=== PATIENT | female | born 1935 | race Caucasian/White ===

== ENCOUNTER 2023-03-14 17:10 | Observation (INO) | payer MEDICARE, OTHER ==
--- NOTE | 2023-03-14 17:58 | ED ---
General Adult HPI - General Chief complaint: Skin/Abscess/Foreign Body Stated complaint: right leg infection Time Seen by Provider: 03/14/23 17:26 Source: patient Mode of arrival: ambulatory Limitations: physical limitation - History of Present Illness Initial comments: 7-year-old female past medical history significant for recurrent cellulitis presents to the ED with a chief complaint of cellulitis. Patient states over the past week has developed redness, warmth, pain, and weeping of her right lower extremity. Notes multiple episodes of cellulitis of the right lower extremity in the past. At this time denies fever. No other complaints. - Related Data Allergies Allergy/AdvReac Type Severity Reaction Status Date / Time Sulfa (Sulfonamide Allergy Rash/Hives Verified 03/14/23 17:22 Antibiotics) Review of Systems ROS Statement: Those systems with pertinent positive or pertinent negative responses have been documented in the HPI. ROS Other: All systems not noted in ROS Statement are negative. Past Medical History Past Medical History: Hyperlipidemia, Hypertension History of Any Multi-Drug Resistant Organisms: None Reported Past Surgical History: Appendectomy, Tubal Ligation Past Psychological History: No Psychological Hx Reported Smoking Status: Never smoker Past Alcohol Use History: None Reported Past Drug Use History: None Reported General Exam Limitations: physical limitation General appearance: alert, in no apparent distress Neck exam: Present: normal inspection Respiratory exam: Present: normal lung sounds bilaterally, respiratory distress Cardiovascular Exam: Present: regular rate, normal rhythm GI/Abdominal exam: Present: soft Extremities exam: Present: other (Redness warmth swelling, erythema and tenderness to palpation over the right anterior lower leg with 1+ pitting edema.) Neurological exam: Present: alert, oriented X3 Psychiatric exam: Present: normal affect, normal mood Skin exam: Present: warm, dry Course Vital Signs 03/14/23 17:17 Temperature 98.9 F Pulse Rate 68 Respiratory 18 Rate Blood Pressure 131/69 O2 Sat by Pulse 98 Oximetry Medical Decision Making - Medical Decision Making Was pt. sent in by a medical professional or institution ([facility], [employer], urgent care, hospital, or fci...) When possible be specific @ -No Did you speak to anyone other than the patient for history (EMS, parent, family, police, friend...)? What history was obtained from this source @ -No Did you review nursing and triage notes (agree or disagree)? Why? @ -I reviewed and agree with nursing and triage notes Were old charts reviewed (outside hosp., previous admission, EMS record, old EKG, old radiological studies, urgent care reports/EKG's, fci records)? Report findings @ -None Differential Diagnosis (chest pain, altered mental status, abdominal pain women, abdominal pain men, vaginal bleeding, weakness, fever, dyspnea, syncope, headache, dizziness, GI bleed, back pain, seizure, CVA, palpatations, mental health, musculoskeletal)? @ -Differential Musculoskeletal Muscular strain, contusion, ligament sprain, fracture, arthritis, septic arthritis, bursitis, cellulitis, muscle spasm, nerve compression, DVT, arterial occlusion, herpes zoster, electrolyte abnormality, tumor.... This is not meant to be in all inclusive list EKG interpreted by me (3pts min.). @ -None X-rays interpreted by me (1pt min.). @ -X-ray interpreted by me showed no evidence of osteomyelitis or free air. CT interpreted by me (1pt min.). @ -None done U/S interpreted by me (1pt. min.). @ -None done What testing was considered but not performed or refused? (CT, X-rays, U/S, labs)? Why? @ -None What meds were considered but not given or refused? Why? @ -None Did you discuss the management of the patient with other professionals (professionals i.e. , PA, REALTIME CAPTIONER, lab, RT, psych nurse, dialysis social worker, binding cutter synthetic cloth, teacher, risk control officer, catalytic case operator)? Give summary @ -No Was smoking cessation discussed for >3mins.? @ -No Was critical care preformed (if so, how long)? @ -No Were there social determinants of health that impacted care today? How? (Homelessness, low income, unemployed, alcoholism, drug addiction, transportation, low edu. Level, literacy, decrease access to med. care, nursing home, rehab)? @ -No Was there de-escalation of care discussed even if they declined (Discuss DNR or withdrawal of care, Hospice)? DNR status @ -No What co-morbidities impacted this encounter? (DM, HTN, Smoking, COPD, CAD, Canc er, CVA, ARF, Chemo, Hep., AIDS, mental health diagnosis, sleep apnea, morbid obesity)? @ -Hypertension, hyperlipidemia. Was patient admitted / discharged? Hospital course, mention meds given and route, prescriptions, significant lab abnormalities, going to OR and other pertinent info. @ -Admission. Imaging shows no evidence of osteomyelitis or necrotizing fasciitis. Vital signs stable, afebrile. CBC does not show an elevated white count. Patient will be admitted due to history of recurrent failures of outpatient treatment despite multiple and long courses of antibiotics. Patient will be admitted to observation started on IV antibiotics with consult to Dr. Kim. Discussed findingd with patient who is in agreement. Undiagnosed new problem with uncertain prognosis? @ -No Drug Therapy requiring intensive monitoring for toxicity (Heparin, Nitro, Insulin, Cardizem)? @ -No Were any procedures done? @ -No Diagnosis/symptom? @ -Cellulitis Acute, or Chronic, or Acute on Chronic? @ -Acute Uncomplicated (without systemic symptoms) or Complicated (systemic symptoms)? @ -Uncomplicated Side effects of treatment? @ -No Exacerbation, Progression, or Severe Exacerbation? @ -No Poses a threat to life or bodily function? How? (Chest pain, USA, VT, pneumonia, PE, COPD, DKA, ARF, appy, cholecystitis, CVA, Diverticulitis, Homicidal, Suicidal, threat to staff... and all critical care pts) @ -No - Lab Data Result diagrams: 03/14/23 17:58 03/14/23 17:58 Lab Results 03/14/23 03/14/23 Range/Units 17:58 17:58 WBC 9.0 (3.8-10.6) k/uL RBC 4.18 (3.80-5.40) m/uL Hgb 12.2 (11.4-16.0) gm/dL Hct 37.1 (34.0-46.0) % MCV 88.7 (80.0-100.0) fL MCH 29.3 (25.0-35.0) pg MCHC 33.0 (31.0-37.0) g/dL RDW 14.5 (11.5-15.5) % Plt Count 305 (150-450) k/uL MPV 8.4 Neutrophils % 57 % Lymphocytes % 24 % Monocytes % 9 % Eosinophils % 8 % Basophils % 1 % Neutrophils # 5.1 (1.3-7.7) k/uL Lymphocytes # 2.2 (1.0-4.8) k/uL Monocytes # 0.8 (0-1.0) k/uL Eosinophils # 0.7 (0-0.7) k/uL Basophils # 0.1 (0-0.2) k/uL Sodium 133 L (137-145) mmol/L Potassium 4.3 (3.5-5.1) mmol/L Chloride 101 (98-107) mmol/L Carbon Dioxide 22 (22-30) mmol/L Anion Gap 10 mmol/L BUN 21 H (7-17) mg/dL Creatinine 0.56 (0.52-1.04) mg/dL Est GFR (CKD-EPI)AfAm >90 (>60 ml/min/1.73 sqM) Est GFR (CKD-EPI)NonAf 83 (>60 ml/min/1.73 sqM) Glucose 96 (74-99) mg/dL Calcium 9.0 (8.4-10.2) mg/dL Total Bilirubin 0.5 (0.2-1.3) mg/dL AST 25 (14-36) U/L ALT 13 (4-34) U/L Alkaline Phosphatase 87 (38-126) U/L Total Protein 6.7 (6.3-8.2) g/dL Albumin 3.5 (3.5-5.0) g/dL Disposition Clinical Impression: Cellulitis Disposition: ADMITTED IP TO THIS HOSP Condition: Good Referrals: Michel Galvan MD [Primary Care Provider] - 1-2 days Time of Disposition: 18:38
[2023-03-14 18:06] LABS: Basophils % (A) 1 %; Eosinophils % (A) 8 %; HCT 37.1 % (34.0-46.0); HGB 12.2 gm/dL (11.4-16.0); Lymphocytes % (A) 24 %; MCH 29.3 pg (25.0-35.0); MCV 88.7 fL (80.0-100.0); Mean Platelet Volume 8.4; Monocytes % (A) 9 %; Neutrophils # (A) 5.1 k/uL (1.3-7.7); Neutrophils % (A) 57 %; Platelet Count 305 k/uL (150-450); RBC 4.18 m/uL (3.80-5.40); RDW 14.5 % (11.5-15.5)
[2023-03-14 18:07] LABS: Basophils # (A) 0.1 k/uL (0-0.2); Eosinophils # (A) 0.7 k/uL (0-0.7); Lymphocytes # (A) 2.2 k/uL (1.0-4.8); Monocytes # (A) 0.8 k/uL (0-1.0)
[2023-03-14 18:18] LABS: ALT 13 U/L (4-34); AST 25 U/L (14-36); African American GFR (CKD) >90 (>60 ml/min/1.73 sqM); Albumin 3.5 g/dL (3.5-5.0); Alkaline Phosphatase 87 U/L (38-126); Anion Gap 10 mmol/L; Blood Urea Nitrogen 21 mg/dL (7-17); Carbon Dioxide 22 mmol/L (22-30); Chloride 101 mmol/L (98-107); Glucose 96 mg/dL (74-99); Non-African American GFR(CKD) 83 (>60 ml/min/1.73 sqM); Potassium 4.3 mmol/L (3.5-5.1); Sodium 133 mmol/L (137-145); Total Bilirubin 0.5 mg/dL (0.2-1.3); Total Protein 6.7 g/dL (6.3-8.2)
[2023-03-14] MEDS ORDERED: VANCOMYCIN IV PER PHARMACY 1 EACH MISC MISCELLANE PRN (18:34)
[2023-03-14] MEDS ORDERED: SODIUM CHLORIDE 0.9% 1,000 ML IV STA (18:34)
[2023-03-14] MEDS ORDERED: KETOROLAC 15 MG/ML 1 ML VIAL IVP PRN (18:38)
[2023-03-14] MEDS ORDERED: ONDANSETRON 4 MG/2 ML VIAL IVP PRN (18:38)
[2023-03-14] MEDS ORDERED: ACETAMINOPHEN TAB 325 MG TAB PO PRN (18:38)
[2023-03-14] MEDS ORDERED: NALOXONE 0.4 MG/ML 1 ML VIAL IV PRN (18:38)
[2023-03-14] MEDS ORDERED: HYDROmorphone 0.5 MG/0.5 ML SYRINGE IVP PRN (18:38)
--- NOTE | 2023-03-14 18:49 | XR ---
EXAMINATION TYPE: XR tibia fibula RT DATE OF EXAM: 03/14/2023 6:14 PM INDICATION: Patient age:Female; 87 years old; Reason for study: r/o osteo; COMPARISON: None TECHNIQUE: The right tibia/fibula was examined in AP and lateral projections. FINDINGS: Soft tissue swelling throughout the leg no evidence for osseous erosion. No evidence for fr acture. Mild degeneration changes of the knee. IMPRESSION: No evidence for osteomyelitis. Soft tissue swelling correlate for systemic and/or infectious etiologies.
[2023-03-14] MEDS ORDERED: VANCOMYCIN 1,250 MG in SODIUM CHLORIDE 0.9% 250 ML IVPB ONE (19:00)
[2023-03-14] MEDS: SODIUM CHLORIDE TAB 1 GM TAB PO SCH (23:07)
[2023-03-14] MEDS: ATORVASTATIN 20 MG TAB PO SCH (23:07)
[2023-03-14] MEDS: TIMOLOL 0.5% OPHTH DROPS 5 ML BTL BOTH EYES SCH (23:07)
[2023-03-15 06:37] LABS: African American GFR (CKD) >90 (>60 ml/min/1.73 sqM); Anion Gap 7 mmol/L; Blood Urea Nitrogen 14 mg/dL (7-17); Calcium 8.5 mg/dL (8.4-10.2); Carbon Dioxide 24 mmol/L (22-30); Chloride 102 mmol/L (98-107); Glucose 98 mg/dL (74-99); Non-African American GFR(CKD) 87 (>60 ml/min/1.73 sqM); Potassium 3.9 mmol/L (3.5-5.1); Sodium 133 mmol/L (137-145)
[2023-03-15] MEDS: SODIUM CHLORIDE TAB 1 GM TAB PO SCH ×2 (08:38→20:27)
[2023-03-15] MEDS: TIMOLOL 0.5% OPHTH DROPS 5 ML BTL BOTH EYES SCH ×2 (08:38→20:25)
[2023-03-15] MEDS: METOPROLOL SUCCINATE (ER) 50 MG TAB.ER.24H PO SCH (10:39)
[2023-03-15] MEDS: LORATADINE 10 MG TAB PO SCH (10:39)
[2023-03-15] MEDS: amLODIPine 10 MG TAB PO SCH (10:39)
--- NOTE | 2023-03-15 11:40 | US ---
EXAMINATION TYPE: US venous doppler duplex LE RT DATE OF EXAM: 03/15/2023 11:20 AM COMPARISON: NONE CLINICAL INDICATION: Female, 87 years old with history of Right lower extremity swelling; Cellulitis right lower leg SIDE PERFORMED: right TECHNIQUE: The lower extremity deep venous system is examined utilizing real time linear array sonog wilmer with graded compression, doppler sonography and color-flow sonography. VESSELS IMAGED: Common Femoral Vein Deep Femoral Vein Greater Saphenous Vein * Femoral Vein Popliteal Vein Small Saphenous Vein * Proximal Calf Veins (* superficial vessels) Right Leg: No evidence of DVT IMPRESSION: Grayscale, color doppler, spectral doppler imaging performed of the deep veins of the lo wer extremities. There is normal flow, compressibility, vascular waveforms.
[2023-03-15] MEDS: NYSTATIN 100,000UNIT/GM CREAM 30 GM TUBE TOPICAL SCH ×2 (11:51→20:26)
[2023-03-15] MEDS: VANCOMYCIN 1,250 MG in SODIUM CHLORIDE 0.9% 250 ML IVPB SCH (11:51)
[2023-03-15] MEDS: TRIAMCINOLONE 0.1% CREAM 80 GM TUBE TOPICAL SCH ×2 (11:51→20:26)
--- NOTE | 2023-03-15 13:06 | P.HPIM ---
History of Present Illness H&P Date: 03/15/23 History of present illness; patient is a 87-year-old lady with past medical hist ory significant for hypertension, hyperlipidemia and the ER because of redness and swelling of the right lower extremity. Patient has been having episodes of recurrent cellulitis in the past. Patient stated that the redness of the right lower extremity cellulitis started 2 days back. Patient was noticing increasing pain and redness, patient was cleaning of lethargy and weakness. There was no c omplaint of fever or chills. Denies any complaint of any recent trauma to her right lower extremity. Denies any recent falls. Denies any lightheadedness or dizziness. Denies any chest pain or shortness of breath. Because of his right lower extremity swelling, patient came to the ER Initial lab work done in the ER showed WBC 19, hemoglobin 12.2, platelet count 305, sodium 1:30, potassium 4.3, BUN 21, creatinine 0.5 Patient was admitted to medicine service REVIEW OF SYSTEMS: CONSTITUTIONAL:As mentioned above HEENT: No recent visual problems or hearing problems. Denied any sore throat. CARDIOVASCULAR: No chest pain, orthopnea, PND, no palpitations, no syncope. PULMONARY: No shortness of breath, no cough, no hemoptysis. GASTROINTESTINAL: No diarrhea, no nausea, no vomiting, no abdominal pain. NEUROLOGICAL: No headaches, no weakness, no numbness. HEMATOLOGICAL: Denies any bleeding or petechiae. GENITOURINARY: Denies any burning micturition, frequency, or urgency. MUSCULOSKELETAL/RHEUMATOLOGICAL:As mentioned above. ENDOCRINE: Denies any polyuria or polydipsia. The rest of the 14-point review of systems is negative. PHYSICAL EXAMINATION: GENERAL: The patient is alert and oriented x3, not in any acute distress. Well developed, well nourished. HEENT: Pupils are round and equally reacting to light. EOMI. No scleral icterus. No conjunctival pallor. Normocephalic, atraumatic. No pharyngeal erythema. No thyromegaly. CARDIOVASCULAR: S1 and S2 present. No murmurs, rubs, or gallops. PULMONARY: Chest is clear to auscultation, no wheezing or crackles. ABDOMEN: Soft, nontender, nondistended, normoactive bowel sounds. No palpable organomegaly. MUSCULOSKELETAL:Right lower extremity erythema EXTREMITIES: No cyanosis, clubbing, or pedal edema. NEUROLOGICAL: Gross neurological examination did not reveal any focal deficits. SKIN: No rashes. Assessment and plan Cellulitis of right lower extremity, failed outpatient treatment Hypertension Hyperlipidemia Monitor vital signs Monitor CBC Monitor CMP Continue telemetry monitoring Keep right lower extremity elevated. Continue IV vancomycin. Ordered ultrasound for right lower extremity. Consult ID Labs and medication were reviewed.. Continue same treatment. Continue with symptomatic treatment. Resume home medication. Monitor labs and vitals. DVT and GI prophylaxis. Further recommendations as per clinical course of the patient Dictation was produced using [email or web address] dictation software. please excuse any grammatical, word or spelling errors. Past Medical History Past Medical History: Hyperlipidemia, Hypertension History of Any Multi-Drug Resistant Organisms: None Reported Past Surgical History: Appendectomy, Tubal Ligation Past Anesthesia/Blood Transfusion Reactions: No Reported Reaction Past Psychological History: No Psychological Hx Reported Smoking Status: Never smoker Past Alcohol Use History: None Reported Past Drug Use History: None Reported Medications and Allergies Home Medications Medication Instructions Recorded Confirmed Type Aspirin EC [Ecotrin Low Dose] 81 mg PO DAILY 03/14/23 03/14/23 History Loratadine [Claritin] 10 mg PO DAILY 03/14/23 03/14/23 History Metoprolol Succinate [Toprol XL] 50 mg PO DAILY 03/14/23 03/14/23 History Simvastatin [Zocor] 40 mg PO HS 03/14/23 03/14/23 History Sodium Chloride Tab 1 gm PO BID 03/14/23 03/14/23 History Timolol 0.5% Ophth Soln [Timoptic 1 drop BOTH EYES BID 03/14/23 03/14/23 History 0.5% Ophth Soln] amLODIPine [Norvasc] 10 mg PO DAILY 03/14/23 03/14/23 History Allergies Allergy/AdvReac Type Severity Reaction Status Date / Time Sulfa (Sulfonamide Allergy Rash/Hives Verified 03/14/23 19:17 Antibiotics) Physical Exam Vitals: Vital Signs Temp Pulse Pulse Resp BP BP Pulse Ox 03/15/23 07:00 98.2 F 63 16 125/45 98 03/15/23 00:36 98.0 F 59 L 16 131/70 97 03/14/23 22:40 18 03/14/23 21:51 98.0 F 64 18 142/69 97 03/14/23 21:15 98.1 F 62 18 131/64 98 03/14/23 19:01 80 18 136/78 100 03/14/23 17:17 98.9 F 68 18 131/69 98 Intake and Output 03/14/23 03/15/23 03/15/23 22:59 06:59 14:59 Other: Voiding Method Toilet # Voids 2 2 Weight 63.957 kg Results CBC & Chem 7: 03/14/23 17:58 03/15/23 06:01 Labs: Abnormal Lab Results - Last 24 Hours (Table) 03/14/23 03/15/23 Range/Units 17:58 06:01 Sodium 133 L 133 L (137-145) mmol/L BUN 21 H (7-17) mg/dL Creatinine 0.48 L (0.52-1.04) mg/dL Thrombosis Risk Factor Assmnt - Choose All That Apply Any of the Below Risk Factors Present?: Yes Each Factor Represents 1 point: Obesity (BMI >25) Each Risk Factor Represents 3 Points: Age 75 years or older Other congenital or acquired thrombophilia - If yes, enter type in comment: No Thrombosis Risk Factor Assessment Total Risk Factor Score: 4 Thrombosis Risk Factor Assessment Level: Moderate Risk
[2023-03-15] MEDS: ATORVASTATIN 20 MG TAB PO SCH (20:25)
--- NOTE | 2023-03-15 22:21 | P.CONS ---
History of Present Illness - Reason for Consult Consult date: 03/15/23 - History of Present Illness Patient is a 87-year-old female with a past medical history significant for hypertension hyperlipidemia presenting to the hospital for eval patient of increasing swelling redness to the right lower extremity, patient denies having history of any trauma symptom has been going on for about 2 weeks and did not have any improvement as the patient presented to hospital patient has been complaining of mostly swelling and redness and denies significant pain itching and complaining of some clear drainage from the area no high-grade fever on presentation to the hospital patient was afebrile and no fever has been recorded subsequently patient did have a normal white count kidney function was normal liver enzymes are normal patient was started on vancomycin infectious was consulted for further management of antibiotic therapy Past Medical History Past Medical History: Hyperlipidemia, Hypertension History of Any Multi-Drug Resistant Organisms: None Reported Past Surgical History: Appendectomy, Tubal Ligation Past Anesthesia/Blood Transfusion Reactions: No Reported Reaction Past Psychological History: No Psychological Hx Reported Smoking Status: Never smoker Past Alcohol Use History: None Reported Past Drug Use History: None Reported Medications and Allergies Home Medications Medication Instructions Recorded Confirmed Type Aspirin EC [Ecotrin Low Dose] 81 mg PO DAILY 03/14/23 03/14/23 History Loratadine [Claritin] 10 mg PO DAILY 03/14/23 03/14/23 History Metoprolol Succinate [Toprol XL] 50 mg PO DAILY 03/14/23 03/14/23 History Simvastatin [Zocor] 40 mg PO HS 03/14/23 03/14/23 History Sodium Chloride Tab 1 gm PO BID 03/14/23 03/14/23 History Timolol 0.5% Ophth Soln [Timoptic 1 drop BOTH EYES BID 03/14/23 03/14/23 History 0.5% Ophth Soln] amLODIPine [Norvasc] 10 mg PO DAILY 03/14/23 03/14/23 History Allergies Allergy/AdvReac Type Severity Reaction Status Date / Time Sulfa (Sulfonamide Allergy Rash/Hives Verified 03/14/23 19:17 Antibiotics) Physical Exam Vitals: Vital Signs Temp Pulse Pulse Resp BP BP Pulse Ox 03/15/23 07:00 98.2 F 63 16 125/45 98 03/15/23 00:36 98.0 F 59 L 16 131/70 97 03/14/23 22:40 18 03/14/23 21:51 98.0 F 64 18 142/69 97 03/14/23 21:15 98.1 F 62 18 131/64 98 03/14/23 19:01 80 18 136/78 100 03/14/23 17:17 98.9 F 68 18 131/69 98 Intake and Output 03/14/23 03/15/23 03/15/23 22:59 06:59 14:59 Other: Voiding Method Toilet # Voids 2 2 Weight 63.957 kg Results CBC & Chem 7: 03/14/23 17:58 03/15/23 06:01 Labs: Abnormal Lab Results - Last 24 Hours (Table) 03/14/23 03/15/23 Range/Units 17:58 06:01 Sodium 133 L 133 L (137-145) mmol/L BUN 21 H (7-17) mg/dL Creatinine 0.48 L (0.52-1.04) mg/dL Assessment and Plan Plan: 1patient with right lower extremity erythematous patient with some clear drainage concerning for possible venous stasis dermatitis not behaving as cellulitis in this patient with no pain no fever no white count 2-we will anuradha the area of the redness 3-apply Mycolog cream and see response We will follow on clinical condition and cultures to further adjust medication if needed Thank you for this consultation we will follow the patient along with you Dictation was produced using [employer] dictation software. please excuse any grammatical, word or spelling errors. Time with Patient: Greater than 30
[2023-03-16] MEDS: VANCOMYCIN 1,250 MG in SODIUM CHLORIDE 0.9% 250 ML IVPB SCH ×2 (02:45→18:47)
[2023-03-16 08:21] LABS: African American GFR (CKD) >90 (>60 ml/min/1.73 sqM); Non-African American GFR(CKD) 88 (>60 ml/min/1.73 sqM)
[2023-03-16] MEDS: LORATADINE 10 MG TAB PO SCH (08:39)
[2023-03-16] MEDS: METOPROLOL SUCCINATE (ER) 50 MG TAB.ER.24H PO SCH (08:40)
[2023-03-16] MEDS: NYSTATIN 100,000UNIT/GM CREAM 30 GM TUBE TOPICAL SCH ×2 (08:40→20:15)
[2023-03-16] MEDS: TRIAMCINOLONE 0.1% CREAM 80 GM TUBE TOPICAL SCH ×2 (08:40→20:15)
[2023-03-16] MEDS: amLODIPine 10 MG TAB PO SCH (08:40)
[2023-03-16] MEDS: SODIUM CHLORIDE TAB 1 GM TAB PO SCH ×2 (08:40→20:17)
[2023-03-16] MEDS: ASPIRIN 81 MG PO SCH (08:40)
[2023-03-16] MEDS: TIMOLOL 0.5% OPHTH DROPS 5 ML BTL BOTH EYES SCH ×2 (11:16→20:15)
--- NOTE | 2023-03-16 12:46 | P.PN ---
Subjective Progress Note Date: 03/16/23 patient is a 87-year-old lady with past medical history significant for hypertension, hyperlipidemia and the ER because of redness and swelling of the right lower extremity. Patient has been having episodes of recurrent cellulitis in the past. Patient stated that the redness of the right lower extremity cellulitis started 2 days back. Patient was noticing increasing pain and redne ss, patient was cleaning of lethargy and weakness. There was no complaint of fever or chills. Denies any complaint of any recent trauma to her right lower extremity. Denies any recent falls. Denies any lightheadedness or dizziness. Denies any chest pain or shortness of breath. Because of his right lower extremity swelling, patient came to the ER Initial lab work done in the ER showed WBC 19, hemoglobin 12.2, platelet count 305, sodium 1:30, potassium 4.3, BUN 21, creatinine 0.5 Patient was admitted to medicine service 03/16. Patient seen and examined. Redness of right lower extremity has improved. Blood cultures were positive, repeat blood cultures ordered. REVIEW OF SYSTEMS: CONSTITUTIONAL: No fever, no malaise,. CARDIOVASCULAR: No chest pain, no palpitations, no syncope. PULMONARY: No shortness of breath, no cough, GASTROINTESTINAL: No diarrhea, no nausea, no vomiting, no abdominal pain. NEUROLOGICAL: No headaches, no weakness, PHYSICAL EXAMINATION: GENERAL: The patient is alert and oriented x3, not in any acute distress. Well developed, well nourished. HEENT: Pupils are round and equally reacting to light. EOMI. No scleral icterus. No conjunctival pallor. Normocephalic, atraumatic. No pharyngeal erythema. No thyromegaly. CARDIOVASCULAR: S1 and S2 present. No murmurs, rubs, or gallops. PULMONARY: Chest is clear to auscultation, no wheezing or crackles. ABDOMEN: Soft, nontender, nondistended, normoactive bowel sounds. No palpable organomegaly. MUSCULOSKELETAL: Right lower extremity swollen, erythema noticeable EXTREMITIES: No cyanosis, clubbing, or pedal edema. NEUROLOGICAL: Gross neurological examination did not reveal any focal deficits. SKIN: No rashes. Assessment and plan Cellulitis of right lower extremity, failed outpatient treatment Hypertension Hyperlipidemia Monitor vital signs Monitor CBC Monitor CMP Keep right lower extremity elevated. Continue IV vancomycin. DC fluids ultrasound for right lower extremity negative for DVT Follow-up in ID recs Labs and medication were reviewed.. Continue same treatment. Continue with symptomatic treatment. Resume home medication. Monitor labs and vitals. DVT and GI prophylaxis. Further recommendations as per clinical course of the patient Dictation was produced using [employer] dictation software. please excuse any grammatical, word or spelling errors. Objective - Vital Signs Vital signs: Vital Signs Temp 98.1 F 03/16/23 07:00 Pulse 61 03/16/23 07:00 Resp 16 03/16/23 07:00 BP 132/61 03/16/23 07:00 Pulse Ox 97 03/16/23 07:00 FiO2 Intake & Output 03/15/23 03/16/23 03/16/23 18:59 06:59 18:59 Other: Voiding Method Toilet # Voids 6 3 - Labs CBC & Chem 7: 03/14/23 17:58 03/16/23 07:17 Labs: Abnormal Lab Results - Last 24 Hours (Table) 03/16/23 Range/Units 07:17 Creatinine 0.47 L (0.52-1.04) mg/dL Microbiology - Last 24 Hours (Table) 03/14/23 17:58 Blood Culture - Preliminary Blood
[2023-03-16] MEDS: ATORVASTATIN 20 MG TAB PO SCH (20:14)
[2023-03-17 03:00] VITALS: RESP 16
[2023-03-17] MEDS: TRIAMCINOLONE 0.1% CREAM 80 GM TUBE TOPICAL SCH (08:51)
[2023-03-17] MEDS: amLODIPine 10 MG TAB PO SCH (08:51)
[2023-03-17] MEDS: METOPROLOL SUCCINATE (ER) 50 MG TAB.ER.24H PO SCH (08:51)
[2023-03-17] MEDS: LORATADINE 10 MG TAB PO SCH (08:51)
[2023-03-17] MEDS: ASPIRIN 81 MG PO SCH (08:51)
[2023-03-17] MEDS: SODIUM CHLORIDE TAB 1 GM TAB PO SCH (08:51)
[2023-03-17] MEDS: NYSTATIN 100,000UNIT/GM CREAM 30 GM TUBE TOPICAL SCH (08:51)
[2023-03-17] MEDS: TIMOLOL 0.5% OPHTH DROPS 5 ML BTL BOTH EYES SCH (08:52)
[2023-03-17] MEDS ORDERED: VANCOMYCIN TROUGH DUE 1 EACH MISC MISCELLANE ONE (10:00)
[2023-03-17 11:05] LABS: African American GFR (CKD) >90 (>60 ml/min/1.73 sqM); Non-African American GFR(CKD) 81 (>60 ml/min/1.73 sqM)
[2023-03-17] MEDS: VANCOMYCIN 1,250 MG in SODIUM CHLORIDE 0.9% 250 ML IVPB SCH (12:37)
--- NOTE | 2023-03-17 12:59 | P.DS ---
Providers Date of admission: 03/14/23 18:32 Expected date of discharge: 03/17/23 Attending physician: Jose Juan Schneider Consults: 03/14/23 18:38 Consult Physician Urgent Consulting Provider: Gabby Kim Consult Reason/Comments: Cellulitis. Previous history of multiple outpatient tx failure Do you want consulting provider notified?: Yes Primary care physician: Michel Galvan [facility] Course: Discharge diagnoses; Cellulitis of right lower extremity, failed outpatient treatment Hypertension Hyperlipidemia Hospital course; patient is a 87-year-old lady with past medical history significant for hypertension, hyperlipidemia and the ER because of redness and swelling of the right lower extremity. Patient has been having episodes of recurrent cellulitis in the past. Patient stated that the redness of the right lower extremity cellulitis started 2 days back. Patient was noticing increasing pain and redness, patient was cleaning of lethargy and weakness. There was no complaint of fever or chills. Denies any complaint of any recent trauma to her right lower extremity. Denies any recent falls. Denies any lightheadedness or dizziness. Denies any chest pain or shortness of breath. Because of his right lower extremity swelling, patient came to the ER Initial lab work done in the ER showed WBC 19, hemoglobin 12.2, platelet count 305, sodium 1:30, potassium 4.3, BUN 21, creatinine 0.5 Patient was admitted to medicine service 03/16. Patient seen and examined. Redness of right lower extremity has improved. Blood cultures were positive, repeat blood cultures ordered. Most likely contaminant 03/17. Patient seen and examined. Being discharged on oral Doxy. PHYSICAL EXAMINATION: GENERAL: The patient is alert and oriented x3, not in any acute distress. Well developed, well nourished. HEENT: Pupils are round and equally reacting to light. EOMI. No scleral icterus. No conjunctival pallor. Normocephalic, atraumatic. No pharyngeal erythema. No thyromegaly. CARDIOVASCULAR: S1 and S2 present. No murmurs, rubs, or gallops. PULMONARY: Chest is clear to auscultation, no wheezing or crackles. ABDOMEN: Soft, nontender, nondistended, normoactive bowel sounds. No palpable organomegaly. MUSCULOSKELETAL: Right lower extremity bandage seen EXTREMITIES: No cyanosis, clubbing, or pedal edema. NEUROLOGICAL: Gross neurological examination did not reveal any focal deficits. SKIN: No rashes. Dictation was produced using [employer] dictation software. please excuse any grammatical, word or spelling errors. Patient Condition at Discharge: Good Plan - Discharge Summary Discharge Rx Participant: Yes New Discharge Prescriptions: New Doxycycline Hyclate 100 mg PO Q12H 7 Days #14 tab Continue Sodium Chloride Tab 1 gm PO BID Timolol 0.5% Ophth Soln [Timoptic 0.5% Ophth Soln] 1 drop BOTH EYES BID Metoprolol Succinate [Toprol XL] 50 mg PO DAILY Loratadine [Claritin] 10 mg PO DAILY Aspirin EC [Ecotrin Low Dose] 81 mg PO DAILY amLODIPine [Norvasc] 10 mg PO DAILY Simvastatin [Zocor] 40 mg PO HS Discharge Medication List Aspirin EC [Ecotrin Low Dose] 81 mg PO DAILY 03/14/23 [History] Loratadine [Claritin] 10 mg PO DAILY 03/14/23 [History] Metoprolol Succinate [Toprol XL] 50 mg PO DAILY 03/14/23 [History] Simvastatin [Zocor] 40 mg PO HS 03/14/23 [History] Sodium Chloride Tab 1 gm PO BID 03/14/23 [History] Timolol 0.5% Ophth Soln [Timoptic 0.5% Ophth Soln] 1 drop BOTH EYES BID 03/14/23 [History] amLODIPine [Norvasc] 10 mg PO DAILY 03/14/23 [History] Doxycycline Hyclate 100 mg PO Q12H 7 Days #14 tab 03/17/23 [Rx] Follow up Appointment(s)/Referral(s): [facility] [NON-STAFF] - 1 Week Gabby Kim MD [STAFF PHYSICIAN] - 1 Week Michel Galvan MD [Primary Care Provider] - 1-2 days Discharge Disposition: HOME SELF-CARE
[2023-03-17 15:14] VITALS: BP 106/62; PULSE 72; TEMP 98.4
--- NOTE | 2023-03-24 23:19 | P.PN ---
Subjective Progress Note Date: 03/16/23 Principal diagnosis: R leg ulcer, cellulitis, bacteremia Patient is a 87-year old female with multiple comorbidities presented to hospital with right lower extremity swelling redness and concerning for possible cellulitis. On today's evaluation that is 03/16/2023, the patient denies having any fever or any chills, the patient is breathing comfortably on room air denies any chest pain or shortness of breath or cough no abdominal pain right lower extremity swelling and drainage has decreased. Patient did have a creatinine 0.47 no CBC was done today blood cultures came back positive with gram-positive cocci Objective - Vital Signs Vital signs: Vital Signs Temp 98.1 F 03/16/23 07:00 Pulse 61 03/16/23 07:00 Resp 16 03/16/23 07:00 BP 132/61 03/16/23 07:00 Pulse Ox 97 03/16/23 07:00 FiO2 Intake & Output 03/15/23 03/16/23 03/16/23 18:59 06:59 18:59 Other: Voiding Method Toilet # Voids 6 3 - Exam GENERAL DESCRIPTION: Elderly female lying in bed in no distress RESPIRATORY SYSTEM: Unlabored breathing , decreased breath sounds at bases HEART: S1 S2 regular rate and rhythm ,no loud murmurs ABDOMEN: Soft , no tenderness EXTREMITIES: Right leg dressing has just been changed by the nursing staff - Labs CBC & Chem 7: 03/14/23 17:58 03/17/23 10:19 Labs: Abnormal Lab Results - Last 24 Hours (Table) 03/16/23 Range/Units 07:17 Creatinine 0.47 L (0.52-1.04) mg/dL Microbiology - Last 24 Hours (Table) 03/14/23 17:59 Blood Culture Gram Stain - Preliminary Blood 03/14/23 17:58 Blood Culture - Preliminary Blood Assessment and Plan (1) Cellulitis Status: Acute Code(s): L03.90 - CELLULITIS, UNSPECIFIED SNOMED Code(s): 922911282 (2) Positive blood cultures Status: Acute Code(s): R78.81 - BACTEREMIA SNOMED Code(s): 820898786 Plan: 1patient with right lower extremity erythematous patient with some clear drainage concerning for possible venous stasis dermatitis not behaving as cellulitis in this patient with no pain no fever no white count 2positive blood culture with staph epi possible skin contamination blood culture will be repeated document clearance of bacteremia. 3patient to continue the vancomycin and Mycolog cream we will reevaluate the wound tomorrow to determine discharge antibiotics discussed with admitting team Dictation was produced using [email or web address] dictation software. please excuse any grammatical, word or spelling errors. Time with Patient: Less than 30
--- NOTE | 2023-03-24 23:22 | P.PN ---
Subjective Progress Note Date: 03/17/23 Principal diagnosis: R leg ulcer, cellulitis, bacteremia Patient is a 87-year old female with multiple comorbidities presented to hospital with right lower extremity swelling redness and concerning for possible cellulitis. On today's evaluation that is 03/17/2023 patient remains to be afebrile the patient is breathing comfortably on room air the patient denies having any chest pain or shortness of breath or cough no nausea vomiting no abdominal pain and no diarrhea. Patient creatinine 0.60 no CBC was done today blood culture with staph epi repeat blood cultures were negative Objective - Vital Signs Vital signs: Vital Signs Temp 98.3 F 03/17/23 07:35 Pulse 67 03/17/23 07:35 Resp 16 03/17/23 07:35 BP 112/56 03/17/23 07:35 Pulse Ox 97 03/17/23 07:35 FiO2 Intake & Output 03/16/23 03/17/23 03/17/23 18:59 06:59 18:59 Intake Total 240 Balance 240 Intake: Oral 240 Other: # Voids 4 2 1 - Exam GENERAL DESCRIPTION: Elderly female lying in bed in no distress RESPIRATORY SYSTEM: Unlabored breathing , decreased breath sounds at bases HEART: S1 S2 regular rate and rhythm ,no loud murmurs ABDOMEN: Soft , no tenderness EXTREMITIES: Right lower extremity swelling and redness has decreased no draina ge - Labs CBC & Chem 7: 03/14/23 17:58 03/17/23 10:19 Labs: Microbiology - Last 24 Hours (Table) 03/14/23 17:59 Blood Culture Gram Stain - Preliminary Blood 03/14/23 17:58 Blood Culture - Preliminary Blood Assessment and Plan (1) Cellulitis Status: Acute Code(s): L03.90 - CELLULITIS, UNSPECIFIED SNOMED Code(s): 133423841 (2) Positive blood cultures Status: Acute Code(s): R78.81 - BACTEREMIA SNOMED Code(s): 845161239 Plan: 1patient with right lower extremity erythematous patient with some clear drainage concerning for possible venous stasis dermatitis not behaving as cellul itis in this patient with no pain no fever no white count 2positive blood culture with staph epi possible skin contamination blood culture has been repeated and so far negative likely contamination. 3patient seem to have shown clinical improvement as well as right lower extremity cellulitis is concerned will finish therapy short course of oral doxycycline and continue Mycolog cream and close outpatient follow-up questions concerns answered Dictation was produced using [employer] software. please excuse any grammatical, word or spelling errors. Time with Patient: Less than 30
== END 2023-03-17 17:08 | disposition home health service (06) ==
LOC: EC 17:10 → 6NMEDSUR 18:32 → INTOOBSV 03-17 12:40 → OBSVTOIN 03-17 12:40 → UNDODISIN 03-17 17:08
PROVIDERS: ADMIT Hospitalist; ATTEND Hospitalist
DX: R10.9 Unspecified abdominal pain (principal); L03.115 Cellulitis of right lower limb; I10 Essential (primary) hypertension; E78.5 Hyperlipidemia, unspecified; R06.02 Shortness of breath; L97.919 Non-pressure chronic ulcer of unspecified part of right lower leg with unspecified severity; R78.81 Bacteremia
CPT/HCPCS: 96365; 96366; 99284; 36415; 80053; 80048; 82565 ×2; 85025; 80202; 87040 ×2; 87077; 87186; 73590; 93971; G0378 ×4; J3370 ×4

== ENCOUNTER 2023-04-09 13:29 | Emergency (ER) | payer MEDICARE, OTHER ==
[2023-04-09] MEDS ORDERED: VANCOMYCIN IV PER PHARMACY 1 EACH MISC MISCELLANE PRN (14:17)
[2023-04-09] MEDS ORDERED: IBUPROFEN 600 MG TAB PO STA (14:17)
--- NOTE | 2023-04-09 14:30 | ED ---
General Adult HPI - General Chief complaint: Skin/Abscess/Foreign Body Stated complaint: infection rt leg Time Seen by Provider: 04/09/23 13:44 Source: patient, RN notes reviewed, old records reviewed Mode of arrival: wheelchair Limitations: no limitations - History of Present Illness Initial comments: Patient is an 87-year-old female with past medical history remarkable for hypertension, hyperlipidemia with recent admission for cellulitis the right l ower extremity presents emergency Department complaining of recurrent cellulitis in the right lower extremity. Patient had some erythema and clear discharge from a patch located over the inferior brooks on the right. She denies any systemic signs of infection including fevers, weakness, nausea, vomiting, abdominal pain, chest pain, shortness of breath. Does endorse increased discharge. Was discharged home on antibiotics home, however states that over the last few days has noticed increased erythema with it spreading superiorly along the right brooks and increased warmth and pain over the site. Per previous notes, was discharged home on doxycycline on March 17. Patient states it improved but returned over the last few days to week. Has no other acute complaints. Presents for further evaluation. - Related Data Home Medications Medication Instructions Recorded Confirmed Aspirin EC [Ecotrin Low Dose] 81 mg PO DAILY 03/14/23 03/14/23 Loratadine [Claritin] 10 mg PO DAILY 03/14/23 03/14/23 Metoprolol Succinate [Toprol XL] 50 mg PO DAILY 03/14/23 03/14/23 Simvastatin [Zocor] 40 mg PO HS 03/14/23 03/14/23 Sodium Chloride Tab 1 gm PO BID 03/14/23 03/14/23 Timolol 0.5% Ophth Soln [Timoptic 1 drop BOTH EYES BID 03/14/23 03/14/23 0.5% Ophth Soln] amLODIPine [Norvasc] 10 mg PO DAILY 03/14/23 03/14/23 Previous Rx's Medication Instructions Recorded Doxycycline Hyclate 100 mg PO Q12H 7 Days #14 tab 03/17/23 Cephalexin [Keflex] 500 mg PO Q12HR 7 Days #14 cap 04/09/23 Doxycycline Hyclate 100 mg PO BID 7 Days #14 capsule 04/09/23 Allergies Allergy/AdvReac Type Severity Reaction Status Date / Time Sulfa (Sulfonamide Allergy Rash/Hives Verified 04/09/23 13:36 Antibiotics) Review of Systems ROS Statement: Those systems with pertinent positive or pertinent negative responses have been documented in the HPI. Review of Systems: CONST: Denies fever EYES: Denies blurry vision ENT: Denies nasal congestion C/V: Denies Chest pain RESP: Denies shortness of breath GI: Denies abdominal pain : Denies dysuria SKIN: Endorses erythematous skin infection located over the right brooks. MSK: Denies joint pain. NEURO: Denies headache ROS Other: All systems not noted in ROS Statement are negative. Past Medical History Past Medical History: Hyperlipidemia, Hypertension History of Any Multi-Drug Resistant Organisms: None Reported Past Surgical History: Appendectomy, Tubal Ligation Past Anesthesia/Blood Transfusion Reactions: No Reported Reaction Past Psychological History: No Psychological Hx Reported Smoking Status: Never smoker Past Alcohol Use History: None Reported Past Drug Use History: None Reported General Exam - General Exam Comments Initial Comments: General: Appears in no acute distress. HEAD: Normal with no signs of head trauma. EYES: PERRLA, EOMI, conjunctiva normal, no discharge. ENT: Hearing grossly intact, normal oropharynx. RESPIRATORY: Clear breath sounds bilaterally. No wheezes, rales, or rhonchi. C/V: Regular rate and rhythm. S1 and S2 auscultated, no edema, peripheral pulses 2+ and intact throughout ABD: Abd is soft, nontender, nondistended EXT: Normal range of motion, no obvious deformity SKIN: Findings concerning for dermatitis versus cellulitis of the anterior right brooks. It is an erythematous patch approximately 1% of her body surface area that per patient has extended superiorly and increased in size. It is warm to touch. Some induration present. No fluctuance. Clear discharge. NEURO: Alert and oriented 4. Limitations: no limitations Course Vital Signs 04/09/23 04/09/23 04/09/23 13:34 16:28 18:10 Temperature 98.9 F 98.4 F Pulse Rate 66 58 L 58 L Respiratory 18 16 18 Rate Blood Pressure 127/66 115/62 122/64 O2 Sat by Pulse 99 99 96 Oximetry Medical Decision Making - Medical Decision Making Was pt. sent in by a medical professional or institution (, PA, CONCRETE CRUSHER LOADER OPERATOR, urgent care, hospital, or long term...) When possible be specific @ -No Did you speak to anyone other than the patient for history (EMS, parent, family, police, friend...)? What history was obtained from this source @ -No Did you review nursing and triage notes (agree or disagree)? Why? @ -I reviewed and agree with nursing and triage notes Were old charts reviewed (outside hosp., previous admission, EMS record, old EKG, old radiological studies, urgent care reports/EKG's, long term records)? Report findings @ -Old charts reviewed from March 2023. Differential Diagnosis (chest pain, altered mental status, abdominal pain women, abdominal pain men, vaginal bleeding, weakness, fever, dyspnea, syncope, headache, dizziness, GI bleed, back pain, seizure, CVA, palpatations, mental health, musculoskeletal)? @ -Cellulitis, skin dermatitis, osteomyelitis, this list was not all-inclusive. EKG interpreted by me (3pts min.). @ -None done X-rays interpreted by me (1pt min.). @ -Tib-fib x-ray shows no evidence of osteomyelitis. CT interpreted by me (1pt min.). @ -None done U/S interpreted by me (1pt. min.). @ -None done What testing was considered but not performed or refused? (CT, X-rays, U/S, labs)? Why? @ -None What meds were considered but not given or refused? Why? @ -None Did you discuss the management of the patient with other professionals (professionals i.e. , PA, CONCRETE CRUSHER LOADER OPERATOR, lab, RT, psych nurse, social sciences research scientist, maintenance and utilities supervisor, teacher, parcel post officer, case technician)? Give summary @ -No Was smoking cessation discussed for >3mins.? @ -No Was critical care preformed (if so, how long)? @ -No Were there social determinants of health that impacted care today? How? (Homelessness, low income, unemployed, alcoholism, drug addiction, transp ortation, low edu. Level, literacy, decrease access to med. care, prison, rehab)? @ -No Was there de-escalation of care discussed even if they declined (Discuss DNR or withdrawal of care, Hospice)? DNR status @ -No What co-morbidities impacted this encounter? (DM, HTN, Smoking, COPD, CAD, Cancer, CVA, ARF, Chemo, Hep., AIDS, mental health diagnosis, sleep apnea, morbid obesity)? @ -None Was patient admitted / discharged? Hospital course, mention meds given and route, prescriptions, significant lab abnormalities, going to OR and other pertinent info. @ -Based on the patient's presentation and physical exam, I do believe this is recurrence of the cellulitis. After reviewing some of previous stressors debate as to whether it was dermatitis versus sialitis however patient went home on doxycycline and patient states that the redness and sent the cellulitis imp roved. However it returned when she stopped taking the antibiotic. It has been 2-3 weeks since discontinuing antibiotics. We'll obtain blood and wound cultures as well as labs. Basic labs will be obtained as well as x-ray of the right leg. Patient was in agreement this plan. She'll receive Motrin for pain control and be started on vancomycin. Vital signs within acceptable limits. X-ray reveals no evidence of osteo myelitis. Labs are remarkable for absence of leukocytosis. Lactic acid within normal limits. Blood and wound cultures sent and are pending. Patient received a dose of vancomycin which is still running. She otherwise remains unchanged. I did debride prior notes and she was discharged home on doxycycline previously and diagnosis was between dermatitis and cellulitis. I did discuss this with the patient. Patient would like to go home although I did offer admission. I believe this is reasonable as the labs appear within acceptable limits. Vital signs appear within acceptable limits. I will provide the patient with a prescription for Keflex, doxycycline. I instructed the patient to follow up with their PCP in the next 1-3 days. I explained that the patient should return to the emergency department if they experience any worsening symptoms. Strict return precautions were discussed with the patient. The patient expressed understanding of these instructions. I answered all questions that the patient had. The patient was discharged home in good condition with their prescriptions and follow up information. Undiagnosed new problem with uncertain prognosis? @ -No Drug Therapy requiring intensive monitoring for toxicity (Heparin, Nitro, Insulin, Cardizem)? @ -No Were any procedures done? @ -No Diagnosis/symptom? @ -Cellulitis Acute, or Chronic, or Acute on Chronic? @ -Acute Uncomplicated (without systemic symptoms) or Complicated (systemic symptoms)? @ -Uncomplicated Side effects of treatment? @ -No Exacerbation, Progression, or Severe Exacerbation? @ -No Poses a threat to life or bodily function? How? (Chest pain, USA, VT, pneumonia, PE, COPD, DKA, ARF, appy, cholecystitis, CVA, Diverticulitis, Homicidal, Ybarra icidal, threat to staff... and all critical care pts) @ -no - Lab Data Result diagrams: 04/09/23 14:27 04/09/23 14:27 Lab Results 04/09/23 04/09/23 04/09/23 Range/Units 14:27 14:27 14:27 WBC 9.2 (3.8-10.6) k/uL RBC 4.44 (3.80-5.40) m/uL Hgb 12.5 (11.4-16.0) gm/dL Hct 39.1 (34.0-46.0) % MCV 88.2 (80.0-100.0) fL MCH 28.2 (25.0-35.0) pg MCHC 32.0 (31.0-37.0) g/dL RDW 14.8 (11.5-15.5) % Plt Count 292 (150-450) k/uL MPV 8.4 Neutrophils % 61 % Lymphocytes % 22 % Monocytes % 7 % Eosinophils % 7 % Basophils % 1 % Neutrophils # 5.6 (1.3-7.7) k/uL Lymphocytes # 2.0 (1.0-4.8) k/uL Monocytes # 0.7 (0-1.0) k/uL Eosinophils # 0.7 (0-0.7) k/uL Basophils # 0.0 (0-0.2) k/uL Sodium 133 L (137-145) mmol/L Potassium 4.2 (3.5-5.1) mmol/L Chloride 102 (98-107) mmol/L Carbon Dioxide 26 (22-30) mmol/L Anion Gap 5 mmol/L BUN 11 (7-17) mg/dL Creatinine 0.57 (0.52-1.04) mg/dL Est GFR (CKD-EPI)AfAm >90 (>60 ml/min/1.73 sqM) Est GFR (CKD-EPI)NonAf 83 (>60 ml/min/1.73 sqM) Glucose 94 (74-99) mg/dL Plasma Lactic Acid Anup 0.8 (0.7-2.0) mmol/L Calcium 9.3 (8.4-10.2) mg/dL Total Bilirubin 0.7 (0.2-1.3) mg/dL AST 27 (14-36) U/L ALT 14 (4-34) U/L Alkaline Phosphatase 89 (38-126) U/L Total Protein 6.8 (6.3-8.2) g/dL Albumin 3.7 (3.5-5.0) g/dL Disposition Clinical Impression: Cellulitis Disposition: HOME SELF-CARE Condition: Fair Instructions (If sedation given, give patient instructions): Cellulitis (ED) Prescriptions: Doxycycline Hyclate 100 mg PO BID 7 Days #14 capsule Cephalexin [Keflex] 500 mg PO Q12HR 7 Days #14 cap Is patient prescribed a controlled substance at d/c from ED?: No Referrals: Michel Galvan MD [Primary Care Provider] - 1-2 days Gabby Kim MD [STAFF PHYSICIAN] - 1-2 days Time of Disposition: 15:45
--- NOTE | 2023-04-09 14:36 | XR ---
EXAMINATION TYPE: XR tibia fibula RT DATE OF EXAM: 04/09/2023 2:30 PM INDICATION: Patient age:Female; 87 years old; Reason for study: eval for osteomyelitis; [facility]. COMPARISON: Right tibia/fibular radiograph 03/14/2023 TECHNIQUE: The right tibia/fibula was examined in AP and lateral projections. FINDINGS: No evidence of any acute osseous pathology dislocation. No osseous erosions. No radiopaque foreign body. Similar diffuse soft tissue swelling. Mild degenerative changes of the knee. IMPRESSION: 1. No evidence of acute fracture. No osseous erosions to suggest osteomyelitis. 2. Similar diffuse soft tissue swelling.
[2023-04-09 14:39] LABS: Basophils % (A) 1 %; Eosinophils # (A) 0.7 k/uL (0-0.7); Eosinophils % (A) 7 %; HCT 39.1 % (34.0-46.0); HGB 12.5 gm/dL (11.4-16.0); Lymphocytes % (A) 22 %; MCH 28.2 pg (25.0-35.0); MCV 88.2 fL (80.0-100.0); Mean Platelet Volume 8.4; Monocytes # (A) 0.7 k/uL (0-1.0); Monocytes % (A) 7 %; Neutrophils # (A) 5.6 k/uL (1.3-7.7); Neutrophils % (A) 61 %; Platelet Count 292 k/uL (150-450); RBC 4.44 m/uL (3.80-5.40); RDW 14.8 % (11.5-15.5); WBC 9.2 k/uL (3.8-10.6)
[2023-04-09 14:52] LABS: ALT 14 U/L (4-34); AST 27 U/L (14-36); African American GFR (CKD) >90 (>60 ml/min/1.73 sqM); Albumin 3.7 g/dL (3.5-5.0); Alkaline Phosphatase 89 U/L (38-126); Anion Gap 5 mmol/L; Blood Urea Nitrogen 11 mg/dL (7-17); Calcium 9.3 mg/dL (8.4-10.2); Carbon Dioxide 26 mmol/L (22-30); Chloride 102 mmol/L (98-107); Glucose 94 mg/dL (74-99); Non-African American GFR(CKD) 83 (>60 ml/min/1.73 sqM); Potassium 4.2 mmol/L (3.5-5.1); Sodium 133 mmol/L (137-145); Total Bilirubin 0.7 mg/dL (0.2-1.3); Total Protein 6.8 g/dL (6.3-8.2)
[2023-04-09] MEDS ORDERED: VANCOMYCIN 1,250 MG in SODIUM CHLORIDE 0.9% 250 ML IVPB ONE (15:00)
[2023-04-09 16:33] VITALS: PULSE 58; TEMP 98.4
[2023-04-09 18:11] VITALS: BP 122/64; RESP 18
== END 2023-04-09 18:21 | disposition home or self-care (01) ==
LOC: EC 13:29
DX: L03.115 Cellulitis of right lower limb (principal); B95.62 Methicillin resistant Staphylococcus aureus infection as the cause of diseases classified elsewhere; I10 Essential (primary) hypertension; E78.5 Hyperlipidemia, unspecified; Z79.82 Long term (current) use of aspirin; Z79.899 Other long term (current) drug therapy; Z88.2 Allergy status to sulfonamides; Z90.49 Acquired absence of other specified parts of digestive tract
CPT/HCPCS: 36415; 80053; 83605; 85025; 87040; 87070; 87205; 87075; 73590; 99284; 96365; 96366 ×2; J3370; 87077; 87186

== ENCOUNTER 2023-06-17 12:21 | Emergency (ER) | payer MEDICARE, OTHER ==
[2023-06-17 12:30] VITALS: RESP 18
--- NOTE | 2023-06-17 12:46 | ED ---
General Adult HPI - General Chief complaint: Extremity Problem,Nontraumatic Stated complaint: Right leg wound Time Seen by Provider: 06/17/23 12:25 Source: patient, RN notes reviewed, old records reviewed Mode of arrival: wheelchair Limitations: no limitations - History of Present Illness Initial comments: This is an 87-year-old female presents emergency department stating she has a chronic cellulitis on her left leg but occasionally gets more infected and he becomes of acute cellulitis in that is what has occurred over the last month the areas becoming more and more red and more painful and more warm. Patient states this happened multiple times in the past that she sees Dr. Hardy. Patient is not on any current antibiotic. Patient denies any fever chills. Patient has no other complaints. - Related Data Home Medications Medication Instructions Recorded Confirmed Aspirin EC [Ecotrin Low Dose] 81 mg PO DAILY 03/14/23 06/17/23 Loratadine [Claritin] 10 mg PO DAILY 03/14/23 06/17/23 Metoprolol Succinate [Toprol XL] 50 mg PO DAILY 03/14/23 06/17/23 Simvastatin [Zocor] 40 mg PO HS 03/14/23 06/17/23 Sodium Chloride Tab 1 gm PO BID 03/14/23 06/17/23 Timolol 0.5% Ophth Soln [Timoptic 1 drop BOTH EYES BID 03/14/23 06/17/23 0.5% Ophth Soln] amLODIPine [Norvasc] 10 mg PO DAILY 03/14/23 06/17/23 Docusate [Colace] 100 mg PO DAILY PRN 06/17/23 06/17/23 Prevagen 1 cap PO DAILY 06/17/23 06/17/23 Previous Rx's Medication Instructions Recorded Doxycycline [Vibramycin] 100 mg PO BID 1 Days #20 capsule 06/17/23 Mupirocin 2% Oint [Bactroban 2% 1 applic TOPICAL BID #22 gm 06/17/23 Oint] Allergies Allergy/AdvReac Type Severity Reaction Status Date / Time sulfamethoxazole Allergy Severe Rash/Hives Verified 06/17/23 14:08 [From Bactrim] trimethoprim [From Bactrim] Allergy Severe Rash/Hives Verified 06/17/23 14:08 Sulfa (Sulfonamide Allergy Rash/Hives Verified 06/17/23 14:08 Antibiotics) Review of Systems ROS Statement: Those systems with pertinent positive or pertinent negative responses have been documented in the HPI. ROS Other: All systems not noted in ROS Statement are negative. Past Medical History Past Medical History: Hyperlipidemia, Hypertension History of Any Multi-Drug Resistant Organisms: MRSA Date of last positivie culture/infection: 04/09/23 MDRO Source:: Right Leg Past Surgical History: Appendectomy, Tubal Ligation Past Anesthesia/Blood Transfusion Reactions: No Reported Reaction Past Psychological History: No Psychological Hx Reported Smoking Status: Never smoker Past Alcohol Use History: None Reported Past Drug Use History: None Reported General Exam - General Exam Comments Initial Comments: GENERAL: Patient is well-developed and well-nourished. Patient is nontoxic and well- hydrated and is in no acute distress. ENT: Neck is soft and supple. No significant lymphadenopathy is noted. Oropharynx is clear. Moist mucous membranes. Neck has full range of motion without eliciting any pain. EYES: The sclera were anicteric and conjunctiva were pink and moist. Extraocular movements were intact and pupils were equal round and reactive to light. Eyelids were unremarkable. PULMONARY: Unlabored respirations. Good breath sounds bilaterally. No audible rales r honchi or wheezing was noted. CARDIOVASCULAR: There is a regular rate and rhythm without any murmurs gallops or rubs. ABDOMEN: Soft and nontender with normal bowel sounds. SKIN: Skin is clear with no lesions or rashes and otherwise unremarkable. NEUROLOGIC: Patient is alert and oriented x3. Cranial nerves II through XII are grossly intact. Motor and sensory are also intact. Normal speech, volume and content. Symmetrical smile. MUSCULOSKELETAL: Normal extremities with adequate strength and full range of motion. Right leg is swollen there is a wound on the anterior surface that extends circumferentially. The area is some area of what appears to be chronic cellulitis but there is a large area bright red which appears to be more of an acute cellulitis LYMPHATICS: No significant lymphadenopathy is noted PSYCHIATRIC: Normal psychiatric evaluation. Limitations: no limitations Course Vital Signs 06/17/23 06/17/23 12:23 14:36 Temperature 98.5 F Pulse Rate 75 64 Respiratory 18 18 Rate Blood Pressure 143/70 116/65 O2 Sat by Pulse 98 99 Oximetry Medical Decision Making - Medical Decision Making Was pt. sent in by a medical professional or institution (, PA, CONTROL ROOM SUPERVISOR, urgent care, hospital, or retirement...) When possible be specific @ -No Did you speak to anyone other than the patient for history (EMS, parent, family, police, friend...)? What history was obtained from this source @ -No Did you review nursing and triage notes (agree or disagree)? Why? @ -I reviewed and agree with nursing and triage notes Were old charts reviewed (outside hosp., previous admission, EMS record, old EKG, old radiological studies, urgent care reports/EKG's, retirement records)? Report findings @ -I reviewed prior charts from prior lab work on the patient Differential Diagnosis (chest pain, altered mental status, abdominal pain women, abdominal pain men, vaginal bleeding, weakness, fever, dyspnea, syncope, headache, dizziness, GI bleed, back pain, seizure, CVA, palpatations, mental health, musculoskeletal)? @ -Differential Fever: Pneumonia, viral URI, endocarditis, myocarditis, pericarditis, otitis, sinusitis, peritonsillar Abscess, retropharyngeal Abscess, epiglottitis, peritonitis, appendicitis, Rhea cystitis, diverticulitis, hepatitis, colitis, UTI, PID, TOA, pyelonephritis, prostatitis, epididymitis, meningitis, encephalitis, pulmonary embolism, CVA, thyroid storm, pancreatitis, adrenal crisis, cavernous sinus thrombosis, this is not meant to be an all-inclusive list. EKG interpreted by me (3pts min.). @ -As above X-rays interpreted by me (1pt min.). @ -X-ray of the tib-fib shows no signs of osteomyelitis CT interpreted by me (1pt min.). @ -None done U/S interpreted by me (1pt. min.). @ -None done What testing was considered but not performed or refused? (CT, X-rays, U/S, labs)? Why? @ -None What meds were considered but not given or refused? Why? @ -None Did you discuss the management of the patient with other professionals (professionals i.e. , PA, CONTROL ROOM SUPERVISOR, lab, RT, psych nurse, social science professor, drop hammer pile driver operator, teacher, radio division officer, casework specialist)? Give summary @ -I spoke with Dr. Kim on a number of occasions and he wanted the patient to be discharged home with doxycycline and follow up with him Was smoking cessation discussed for >3mins.? @ -No Was critical care preformed (if so, how long)? @ -No Were there social determinants of health that impacted care today? How? (Homelessness, low income, unemployed, alcoholism, drug addiction, transportation, low edu. Level, literacy, decrease access to med. care, penitentiary, rehab)? @ -No Was there de-escalation of care discussed even if they declined (Discuss DNR or withdrawal of care, Hospice)? DNR status @ -No What co-morbidities impacted this encounter? (DM, HTN, Smoking, COPD, CAD, Cancer, CVA, ARF, Chemo, Hep., AIDS, mental health diagnosis, sleep apnea, morbid obesity)? @ -None Was patient admitted / discharged? Hospital course, mention meds given and route, prescriptions, significant lab abnormalities, going to OR and other pertinent info. @ -Patient has a superficial cellulitis and will be placed on doxycycline which the MRSA was sensitive to last time. Undiagnosed new problem with uncertain prognosis? @ -No Drug Therapy requiring intensive monitoring for toxicity (Heparin, Nitro, Insulin, Cardizem)? @ -No Were any procedures done? @ -No Diagnosis/symptom? @ -Cellulitis leg Acute, or Chronic, or Acute on Chronic? @ -Acute Uncomplicated (without systemic symptoms) or Complicated (systemic symptoms)? @ -Complicated Side effects of treatment? @ -No Exacerbation, Progression, or Severe Exacerbation? @ -No Poses a threat to life or bodily function? How? (Chest pain, [place], [place], pneumonia, PE, COPD, DKA, ARF, appy, cholecystitis, CVA, Diverticulitis, Homicidal, Suicidal, threat to staff... and all critical care pts) @ -No - Lab Data Result diagrams: 06/17/23 12:46 06/17/23 12:46 Lab Results 06/17/23 06/17/23 06/17/23 Range/Units 12:46 12:46 12:46 WBC 10.1 (3.8-10.6) k/uL RBC 4.48 (3.80-5.40) m/uL Hgb 12.7 (11.4-16.0) gm/dL Hct 38.8 (34.0-46.0) % MCV 86.6 (80.0-100.0) fL MCH 28.4 (25.0-35.0) pg MCHC 32.8 (31.0-37.0) g/dL RDW 14.1 (11.5-15.5) % Plt Count 318 (150-450) k/uL MPV 7.9 Neutrophils % 67 % Lymphocytes % 18 % Monocytes % 6 % Eosinophils % 7 % Basophils % 1 % Neutrophils # 6.8 (1.3-7.7) k/uL Lymphocytes # 1.8 (1.0-4.8) k/uL Monocytes # 0.6 (0-1.0) k/uL Eosinophils # 0.7 (0-0.7) k/uL Basophils # 0.1 (0-0.2) k/uL Sodium 136 L (137-145) mmol/L Potassium 4.4 (3.5-5.1) mmol/L Chloride 101 (98-107) mmol/L Carbon Dioxide 23 (22-30) mmol/L Anion Gap 12 mmol/L BUN 14 (7-17) mg/dL Creatinine 0.62 (0.52-1.04) mg/dL Est GFR (CKD-EPI)AfAm >90 (>60 ml/min/1.73 sqM) Est GFR (CKD-EPI)NonAf 80 (>60 ml/min/1.73 sqM) Glucose 95 (74-99) mg/dL Plasma Lactic Acid Anup 0.8 (0.7-2.0) mmol/L Calcium 9.5 (8.4-10.2) mg/dL Total Bilirubin 0.5 (0.2-1.3) mg/dL AST 27 (14-36) U/L ALT 16 (4-34) U/L Alkaline Phosphatase 91 (38-126) U/L Total Protein 6.6 (6.3-8.2) g/dL Albumin 3.7 (3.5-5.0) g/dL Disposition Clinical Impression: Cellulitis, leg Disposition: HOME SELF-CARE Prescriptions: Mupirocin 2% Oint [Bactroban 2% Oint] 1 applic TOPICAL BID #22 gm Doxycycline [Vibramycin] 100 mg PO BID 1 Days #20 capsule Is patient prescribed a controlled substance at d/c from ED?: No Referrals: Michel Galvan MD [Primary Care Provider] - 1-2 days Time of Disposition: 15:17
[2023-06-17] MEDS ORDERED: cefTRIAXone IN SWFI 1,000 MG/10 ML SYRINGE IVP STA ×2 (12:52→12:53)
[2023-06-17 13:20] LABS: Basophils # (A) 0.1 k/uL (0-0.2); Basophils % (A) 1 %; Eosinophils # (A) 0.7 k/uL (0-0.7); Eosinophils % (A) 7 %; HCT 38.8 % (34.0-46.0); HGB 12.7 gm/dL (11.4-16.0); Lymphocytes # (A) 1.8 k/uL (1.0-4.8); Lymphocytes % (A) 18 %; MCH 28.4 pg (25.0-35.0); MCHC 32.8 g/dL (31.0-37.0); MCV 86.6 fL (80.0-100.0); Mean Platelet Volume 7.9; Monocytes # (A) 0.6 k/uL (0-1.0); Monocytes % (A) 6 %; Neutrophils # (A) 6.8 k/uL (1.3-7.7); Neutrophils % (A) 67 %; Platelet Count 318 k/uL (150-450); RBC 4.48 m/uL (3.80-5.40); RDW 14.1 % (11.5-15.5); WBC 10.1 k/uL (3.8-10.6)
[2023-06-17 13:22] LABS: ALT 16 U/L (4-34); AST 27 U/L (14-36); African American GFR (CKD) >90 (>60 ml/min/1.73 sqM); Albumin 3.7 g/dL (3.5-5.0); Alkaline Phosphatase 91 U/L (38-126); Anion Gap 12 mmol/L; Blood Urea Nitrogen 14 mg/dL (7-17); Calcium 9.5 mg/dL (8.4-10.2); Carbon Dioxide 23 mmol/L (22-30); Chloride 101 mmol/L (98-107); Glucose 95 mg/dL (74-99); Non-African American GFR(CKD) 80 (>60 ml/min/1.73 sqM); Potassium 4.4 mmol/L (3.5-5.1); Sodium 136 mmol/L (137-145); Total Bilirubin 0.5 mg/dL (0.2-1.3); Total Protein 6.6 g/dL (6.3-8.2)
--- NOTE | 2023-06-17 14:18 | XR ---
EXAMINATION TYPE: XR tibia fibula RT DATE OF EXAM: 06/17/2023 COMPARISON: [id number] HISTORY: Swelling TECHNIQUE: Two views are submitted. FINDINGS: The osseous structures are intact. Moderate arthropathy of the knee.. Diffuse osteopenia. Localized demineralization of the proximal tibia stable. Soft tissue edema. IMPRESSION: 1. Diffuse osteopenia with stable appearance from prior exam. No destructive changes. 2. Soft tissue edema..
[2023-06-17 16:45] VITALS: BP 118/64; PULSE 91; TEMP 98.9
== END 2023-06-17 16:47 | disposition home or self-care (01) ==
LOC: EC 12:21
DX: L03.115 Cellulitis of right lower limb (principal); E78.5 Hyperlipidemia, unspecified; I10 Essential (primary) hypertension; Z88.2 Allergy status to sulfonamides; Z79.82 Long term (current) use of aspirin; Z79.899 Other long term (current) drug therapy
CPT/HCPCS: 36415; 80053; 83605; 85025; 87040; 73590; 99284; 96374; J0696